=== PATIENT | male | born 1940 | race Caucasian/White ===

== ENCOUNTER 2017-10-29 19:34 | Emergency (ER) | payer OTHER ==
[2017-10-29 19:52] LABS: ADD MAN DIFF? NO
[2017-10-29 19:58] LABS: WHITE BLOOD COUNT 6.7 10^3/ul (4.8-10.8)
[2017-10-29 19:58] LABS: BASOPHIL # 0.1 10^3/ul (0.0-0.1); BASOPHILS % 1.3 % (0.0-2.0); EOSINOPHILS # 0.2 10^3/ul (0.0-0.5); EOSINOPHILS % 2.2 % (0.0-7.0); HEMATOCRIT 43.7 % (42.0-52.0); HEMOGLOBIN 14.9 g/dl (14.0-18.0); LYMPHOCYTES # 1.6 10^3/ul (0.8-2.9); LYMPHOCYTES % 23.8 % (15.0-51.0); MEAN CORPUSCULAR HEMOGLOBIN 33.1 pg (29.0-33.0); MEAN CORPUSCULAR HGB CONC 34.1 g/dl (32.0-37.0); MEAN CORPUSCULAR VOLUME 97.1 fl (82.0-101.0); MEAN PLATELET VOLUME 9.6 fl (7.4-10.4); MONOCYTE # 0.7 10^3/ul (0.3-0.9); MONOCYTES % 10.5 % (0.0-11.0); NEUTROPHIL # 4.1 10^3/ul (1.6-7.5); NEUTROPHILS % 62.1 % (39.0-77.0); PLATELET COUNT 151 10^3/UL (140-415); RED CELL DISTRIBUTION WIDTH 13.5 % (11.5-14.5)
[2017-10-29 20:21] LABS: ANION GAP 20 (8-16); BLOOD UREA NITROGEN 25 mg/dl (7-20); CALCIUM 9.5 mg/dl (8.4-10.2); CARBON DIOXIDE 22 mmol/L (21-31); CHLORIDE 106 mmol/L (97-110); CREATININE 0.71 mg/dl (0.61-1.24); GLUCOSE 105 mg/dl (70-220); POTASSIUM 3.8 mmol/L (3.5-5.1); SODIUM 144 mmol/L (135-144)
== END 2017-10-29 21:25 | disposition home or self-care (01) ==
LOC: E/R 19:34
DX: F03.90 Unspecified dementia, unspecified severity, without behavioral disturbance, psychotic disturbance, mood disturbance, and anxiety (principal); I10 Essential (primary) hypertension; R40.2142 Coma scale, eyes open, spontaneous, at arrival to emergency department; R40.2252 Coma scale, best verbal response, oriented, at arrival to emergency department; R40.2362 Coma scale, best motor response, obeys commands, at arrival to emergency department; Z79.01 Long term (current) use of anticoagulants
CPT/HCPCS: 80048; 85025; 99283

== ENCOUNTER 2018-09-22 12:07 | Emergency (ER) | payer OTHER | END 2018-09-22 13:57 | disposition home or self-care (01) | LOC: E/R 12:07 | DX: R45.89 Other symptoms and signs involving emotional state (principal); I10 Essential (primary) hypertension; Z85.828 Personal history of other malignant neoplasm of skin; Z86.73 Personal history of transient ischemic attack (TIA), and cerebral infarction without residual deficits | CPT/HCPCS: 99282 ==

== ENCOUNTER 2018-12-15 00:29 | Inpatient (IN) | payer OTHER ==
[2018-12-15 01:13] LABS: ADD MAN DIFF? NO
[2018-12-15 01:18] LABS: WHITE BLOOD COUNT 7.1 10^3/ul (4.8-10.8)
[2018-12-15 01:18] LABS: BASOPHIL # 0.1 10^3/ul (0.0-0.1); BASOPHILS % 1.3 % (0.0-2.0); EOSINOPHILS # 0.2 10^3/ul (0.0-0.5); EOSINOPHILS % 2.4 % (0.0-7.0); HEMOGLOBIN 13.6 g/dl (14.0-18.0); LYMPHOCYTES # 1.7 10^3/ul (0.8-2.9); MEAN CORPUSCULAR HEMOGLOBIN 32.2 pg (29.0-33.0); MEAN CORPUSCULAR VOLUME 94.8 fl (82.0-101.0); MEAN PLATELET VOLUME 9.5 fl (7.4-10.4); MONOCYTE # 0.6 10^3/ul (0.3-0.9); MONOCYTES % 8.2 % (0.0-11.0); NEUTROPHIL # 4.5 10^3/ul (1.6-7.5); NEUTROPHILS % 63.8 % (39.0-77.0); PLATELET COUNT 175 10^3/UL (140-415); RED BLOOD COUNT 4.22 10^6/ul (4.70-6.10); RED CELL DISTRIBUTION WIDTH 12.3 % (11.5-14.5)
[2018-12-15 01:38] LABS: ALANINE AMINOTRANSFERASE 39 IU/L (13-69); ALBUMIN 4.4 g/dl (3.3-4.9); ALKALINE PHOSPHATASE 86 IU/L (42-121); ANION GAP 9 (5-13); ASPARTATE AMINO TRANSFERASE 30 IU/L (15-46); BILIRUBIN,INDIRECT 1.5 mg/dl (0-1.1); BILIRUBIN,TOTAL 1.5 mg/dl (0.2-1.3); BLOOD UREA NITROGEN 24 mg/dl (7-20); CARBON DIOXIDE 29 mmol/L (21-31); CHLORIDE 104 mmol/L (97-110); CREATININE 0.62 mg/dl (0.61-1.24); GLUCOSE 109 mg/dl (70-220); POTASSIUM 4.5 mmol/L (3.5-5.1); SODIUM 142 mmol/L (135-144)
[2018-12-15 01:41] LABS: PARTIAL THROMBOPLASTIN TIME 29.2 Sec (23.0-35.0); PROTIME 21.9 Sec (11.9-14.9); PT RATIO 1.7
[2018-12-15 01:49] LABS: ADD UMIC NO; TROPONIN-I 0.023 ng/ml (0.000-0.120); UR ASCORBIC ACID NEGATIVE (NEGATIVE); UR BILIRUBIN (Dip) NEGATIVE (NEGATIVE); UR BLOOD (Dip) NEGATIVE (NEGATIVE); UR CLARITY CLEAR (CLEAR); UR COLOR YELLOW (YELLOW); UR GLUCOSE (Dip) NEGATIVE (NEGATIVE); UR KETONES (Dip) NEGATIVE (NEGATIVE); UR LEUKOCYTE ESTERASE (Dip) NEGATIVE Leu/ul (NEGATIVE); UR NITRITE (Dip) NEGATIVE (NEGATIVE); UR SPECIFIC GRAVITY (Dip) 1.016 (1.003-1.030); UR TOTAL PROTEIN (Dip) NEGATIVE (NEGATIVE); UR UROBILINOGEN (Dip) NEGATIVE (NEGATIVE)
[2018-12-15] MEDS ORDERED: morphine 2 MG INJ IV (04:30)
[2018-12-15] MEDS ORDERED: ONDANSETRON 4 MG INJ IV (04:30)
[2018-12-15] MEDS ORDERED: ACETAMINOPHEN 325 MG TAB PO (04:30)
[2018-12-15] MEDS: ALLOPURINOL 300 MG TAB PO (09:00)
[2018-12-15] MEDS ORDERED: PINDOLOL 5 MG PO (09:00)
[2018-12-15] MEDS: LISINOPRIL 20 MG TAB PO (09:00)
[2018-12-15] MEDS: WARFARIN 7.5 MG TAB PO ×2 (11:00→17:00)
[2018-12-15 11:46] LABS: TROPONIN-I 0.026 ng/ml (0.000-0.120)
[2018-12-15] MEDS: DONEPEZIL 10 MG TAB PO (12:30)
[2018-12-15] MEDS: MEMANTINE 10 MG TAB PO (12:30)
[2018-12-15] MEDS: [UNRECOGNIZED DRUG - REMARK] XX (18:30)
[2018-12-15] MEDS: HALOPERIDOL 5 MG INJ IV (21:12)
[2018-12-15] MEDS: ATORVASTATIN 10 MG TAB PO (21:13)
[2018-12-16] MEDS: [UNRECOGNIZED DRUG - REMARK] XX ×3 (02:30→18:30)
[2018-12-16] MEDS: ALLOPURINOL 300 MG TAB PO (08:25)
[2018-12-16] MEDS: MEMANTINE 10 MG TAB PO (08:26)
[2018-12-16] MEDS: DONEPEZIL 10 MG TAB PO (08:26)
[2018-12-16] MEDS: LISINOPRIL 20 MG TAB PO (08:26)
[2018-12-16] MEDS: QUETIAPINE 25 MG TAB PO ×2 (10:58→20:53)
[2018-12-16] MEDS: HALOPERIDOL 5 MG INJ IV ×2 (10:59→20:53)
[2018-12-16] MEDS: WARFARIN 7.5 MG TAB PO (17:47)
[2018-12-16] MEDS: ATORVASTATIN 10 MG TAB PO (20:53)
[2018-12-17] MEDS: HALOPERIDOL 5 MG INJ IV (01:26)
[2018-12-17] MEDS: [UNRECOGNIZED DRUG - REMARK] XX ×3 (02:30→18:04)
[2018-12-17] MEDS: QUETIAPINE 25 MG TAB PO ×2 (09:00→21:06)
[2018-12-17] MEDS: LISINOPRIL 20 MG TAB PO (09:00)
[2018-12-17] MEDS: MEMANTINE 10 MG TAB PO (09:00)
[2018-12-17] MEDS: ALLOPURINOL 300 MG TAB PO (09:00)
[2018-12-17] MEDS: DONEPEZIL 10 MG TAB PO (09:00)
[2018-12-17] MEDS: WARFARIN 7.5 MG TAB PO (17:45)
[2018-12-17] MEDS: ATORVASTATIN 10 MG TAB PO (21:07)
[2018-12-18] MEDS: [UNRECOGNIZED DRUG - REMARK] XX ×3 (02:30→18:02)
[2018-12-18] MEDS: DONEPEZIL 10 MG TAB PO (08:52)
[2018-12-18] MEDS: ALLOPURINOL 300 MG TAB PO (08:52)
[2018-12-18] MEDS: MEMANTINE 10 MG TAB PO (08:52)
[2018-12-18] MEDS: LISINOPRIL 20 MG TAB PO (08:52)
[2018-12-18] MEDS: QUETIAPINE 25 MG TAB PO ×2 (08:52→21:51)
[2018-12-18] MEDS: WARFARIN 7.5 MG TAB PO (17:43)
[2018-12-18] MEDS: ATORVASTATIN 10 MG TAB PO (21:51)
[2018-12-19] MEDS: [UNRECOGNIZED DRUG - REMARK] XX ×3 (02:30→17:18)
[2018-12-19 05:59] LABS: INR 1.67; PROTIME 19.8 Sec (11.9-14.9); PT RATIO 1.5
[2018-12-19] MEDS: DONEPEZIL 10 MG TAB PO (09:00)
[2018-12-19] MEDS: ALLOPURINOL 300 MG TAB PO (09:00)
[2018-12-19] MEDS: MEMANTINE 10 MG TAB PO (09:00)
[2018-12-19] MEDS: QUETIAPINE 25 MG TAB PO ×2 (09:00→21:17)
[2018-12-19] MEDS: LISINOPRIL 20 MG TAB PO (09:00)
[2018-12-19] MEDS: HALOPERIDOL 5 MG INJ IV ×2 (09:11→14:38)
[2018-12-19] MEDS: WARFARIN 7.5 MG TAB PO (17:18)
[2018-12-19] MEDS: ATORVASTATIN 10 MG TAB PO (21:17)
[2018-12-20] MEDS: [UNRECOGNIZED DRUG - REMARK] XX ×3 (02:30→18:30)
[2018-12-20] MEDS: ALLOPURINOL 300 MG TAB PO (09:02)
[2018-12-20] MEDS: QUETIAPINE 25 MG TAB PO (09:02)
[2018-12-20] MEDS: MEMANTINE 10 MG TAB PO (09:03)
[2018-12-20] MEDS: LISINOPRIL 20 MG TAB PO (09:03)
[2018-12-20] MEDS: DONEPEZIL 10 MG TAB PO (09:03)
[2018-12-20] MEDS: WARFARIN 7.5 MG TAB PO (16:38)
== END 2018-12-20 19:58 | DRG 948 ==
LOC: E/R 00:29 → 6WM 04:20
DX: R41.0 Disorientation, unspecified (principal); F02.81 Dementia in other diseases classified elsewhere, unspecified severity, with behavioral disturbance; W19.XXXA Unspecified fall, initial encounter; I10 Essential (primary) hypertension; Z99.3 Dependence on wheelchair; I48.91 Unspecified atrial fibrillation; G30.8 Other Alzheimer's disease; F01.50 Vascular dementia, unspecified severity, without behavioral disturbance, psychotic disturbance, mood disturbance, and anxiety; E29.1 Testicular hypofunction
CPT/HCPCS: 70450; 71045; 72125; 72131; 80048; 80076; 81003; 84484; 85025; 85610; 85730; 93306; 97110; 97116; 97161; 97530; 99285-25; G0378